=== PATIENT | male | born 1985 | race Two or more races ===

== ENCOUNTER 2025-04-23 16:14 | Inpatient (IN) | payer OTHER ==
[~2025-04-23] VITALS: Ht 177.8 cm; Wt 84.2 kg
[2025-04-23 17:27] LABS: PLATELET COUNT (AUTO) 515 K/uL (150-450); RED BLOOD CELL COUNT(AUTO) 6.25 MIL/uL (4.50-5.90); RED CELL DISTRIBUTION WIDTH 21.4 % (11.5-14.5); WHITE BLOOD COUNT (AUTO) 8.5 K/uL (4.5-11.0)
[2025-04-23 17:34] LABS: CALCIUM, TOTAL 8.5 mg/dL (8.8-10.5); CREATININE 1.41 mg/dL (0.60-1.30); GLOMERULAR FILTR. RATE CALC 56.0 mL/min (>60); GLUCOSE,RANDOM 83.0 mg/dL (70-110); SODIUM SERUM 139.0 mmol/L (136-145); UREA NITROGEN, BLOOD 18.0 mg/dL (7-18)
[2025-04-23 17:38] LABS: ASPARTATE AMINOTRANSFERASE 17 U/L (15-37); TOTAL PROTEIN, SERUM 7.8 g/dL (6.4-8.2)
[2025-04-23 17:43] LABS: LACTIC ACID 1.3 mmol/L (0.4-2.0)
[2025-04-23] MEDS ORDERED: OMEP-148 PO (18:02)
[2025-04-23] MEDS ORDERED: AMLO-258 PO (18:02)
[2025-04-23] MEDS ORDERED: TRAM50TA5 PO (18:02)
[2025-04-23] MEDS ORDERED: METO25 PO (18:02)
[2025-04-23 18:18] LABS: RBC MORPHOLOGY COMMENT ABNORMAL RBC MORPH
[2025-04-23] MEDS: ONDANSETRON HCL 4 MG/2 ML VIAL IVP ONE (18:40)
[2025-04-23] MEDS: SODIUM CHLORIDE 0.9% 1,000 ML IV ONE (19:51)
[2025-04-23] MEDS ORDERED: BISACODYL 10 MG RECTAL RECTAL SUPPOSITORY PR PRN (20:30)
[2025-04-23] MEDS ORDERED: ZOLPIDEM TARTRATE 5 MG TABLET PO PRN (20:30)
[2025-04-23] MEDS ORDERED: MAGNESIUM HYDROXIDE SUSPENSION 30 ML UDCUP PO PRN (20:30)
[2025-04-23] MEDS: DOCUSATE SODIUM 100 MG CAPSULE PO SCH (21:00)
[2025-04-23] MEDS: METOPROLOL TARTRATE 25 MG TABLET PO SCH (21:56)
[2025-04-23 21:57] VITALS: BP 127/93; PULSE 60; RESP 18; TEMP 97.5; O2SAT 98; O2SAT 99
[2025-04-23] MEDS: MORPHINE SULFATE 2 MG/ML SYRINGE IVP PRN (22:39)
[2025-04-24] MEDS: HEPARIN SODIUM,PORCINE 5,000 UNITS/ML VIAL SQ SCH (00:04)
[2025-04-24] MEDS: ONDANSETRON HCL 4 MG/2 ML VIAL IVP PRN (00:05)
[2025-04-24 03:20] VITALS: BP 135/88; PULSE 66; RESP 18; TEMP 98; O2SAT 99
[2025-04-24 06:40] LABS: PLATELET COUNT (AUTO) 444 K/uL (150-450); RED BLOOD CELL COUNT(AUTO) 5.69 MIL/uL (4.50-5.90); RED CELL DISTRIBUTION WIDTH 21.3 % (11.5-14.5); WHITE BLOOD COUNT (AUTO) 5.9 K/uL (4.5-11.0)
[2025-04-24 06:47] LABS: CALCIUM, TOTAL 8.2 mg/dL (8.8-10.5); CREATININE 1.30 mg/dL (0.60-1.30); GLOMERULAR FILTR. RATE CALC > 60 mL/min (>60); GLUCOSE,RANDOM 80 mg/dL (70-110); SODIUM SERUM 140 mmol/L (136-145); UREA NITROGEN, BLOOD 16 mg/dL (7-18)
[2025-04-24 07:10] LABS: RBC MORPHOLOGY COMMENT ABNORMAL RBC MORPH
[2025-04-24] MEDS: PANTOPRAZOLE SODIUM 40 MG DR TABLET PO SCH (08:34)
[2025-04-24] MEDS: OMEPRAZOLE 20 MG CAPSULE PO SCH (08:34)
[2025-04-24 09:10] VITALS: BP 106/78; PULSE 50; RESP 18; TEMP 97.7; O2SAT 97
[2025-04-24 19:24] VITALS: BP 128/88; PULSE 72; RESP 18; TEMP 97.9; O2SAT 98
[2025-04-24] MEDS: ACETAMINOPHEN 325 MG TABLET PO PRN (21:00)
[2025-04-25 04:24] VITALS: BP 113/79; PULSE 61; RESP 18; TEMP 97.9; O2SAT 97
[2025-04-25 07:08] LABS: PLATELET COUNT (AUTO) 469 K/uL (150-450); RED BLOOD CELL COUNT(AUTO) 5.95 MIL/uL (4.50-5.90); RED CELL DISTRIBUTION WIDTH 21.1 % (11.5-14.5); WHITE BLOOD COUNT (AUTO) 6.0 K/uL (4.5-11.0)
[2025-04-25 07:13] LABS: CALCIUM, TOTAL 8.3 mg/dL (8.8-10.5); CREATININE 1.49 mg/dL (0.60-1.30); GLOMERULAR FILTR. RATE CALC 53.0 mL/min (>60); GLUCOSE,RANDOM 80.0 mg/dL (70-110); SODIUM SERUM 138.0 mmol/L (136-145); UREA NITROGEN, BLOOD 14.0 mg/dL (7-18)
[2025-04-25 08:00] VITALS: BP 124/92; PULSE 56; RESP 18; O2SAT 99
[2025-04-25 08:16] LABS: RBC MORPHOLOGY COMMENT ABNORMAL RBC MORPH
[2025-04-25 08:33] VITALS: BP 124/92; PULSE 56; RESP 18; TEMP 98.3; O2SAT 97
[2025-04-25] MEDS: MORPHINE SULFATE 2 MG/ML SYRINGE IVP PRN (15:47)
[2025-04-25 16:00] VITALS: BP 118/85; PULSE 67; RESP 15; TEMP 97.8; O2SAT 99
[2025-04-25 21:38] VITALS: BP 116/88; PULSE 59; RESP 18; TEMP 97.9; O2SAT 96
[2025-04-26 06:03] VITALS: BP 115/89; PULSE 65; RESP 18; TEMP 97.9; O2SAT 98
[2025-04-26 08:05] LABS: PLATELET COUNT (AUTO) 471 K/uL (150-450); RED BLOOD CELL COUNT(AUTO) 6.50 MIL/uL (4.50-5.90); RED CELL DISTRIBUTION WIDTH 21.3 % (11.5-14.5); WHITE BLOOD COUNT (AUTO) 7.1 K/uL (4.5-11.0)
[2025-04-26 08:09] LABS: CALCIUM, TOTAL 8.7 mg/dL (8.8-10.5); CREATININE 1.68 mg/dL (0.60-1.30); GLOMERULAR FILTR. RATE CALC 46.0 mL/min (>60); GLUCOSE,RANDOM 124.0 mg/dL (70-110); SODIUM SERUM 138.0 mmol/L (136-145); UREA NITROGEN, BLOOD 10.0 mg/dL (7-18)
[2025-04-26 09:22] VITALS: BP 123/83; PULSE 65; RESP 18; TEMP 97.9; O2SAT 99
[2025-04-26 09:26] VITALS: BP 120/89; PULSE 76; RESP 18; TEMP 98.5; O2SAT 100
[2025-04-26 10:24] LABS: RBC MORPHOLOGY COMMENT ABNORMAL RBC MORPH
[2025-04-26 12:12] VITALS: BP 116/83; PULSE 62; RESP 18; O2SAT 96
[2025-04-26 18:28] VITALS: BP 123/87; PULSE 75; RESP 18; O2SAT 96
[2025-04-26 19:08] VITALS: BP 121/86; PULSE 71; RESP 18; TEMP 98.1; O2SAT 98
[2025-04-27 04:17] VITALS: BP 116/80; PULSE 64; RESP 18; TEMP 97.9; O2SAT 97
[2025-04-27 08:55] VITALS: BP 111/84; PULSE 71; RESP 20; TEMP 98.2; O2SAT 96
[2025-04-27 14:09] VITALS: BP 110/84; PULSE 68; RESP 18; O2SAT 96
[2025-04-27 15:32] VITALS: BP 110/78; PULSE 75; RESP 18; TEMP 97.7; O2SAT 96
[2025-04-27 20:00] VITALS: BP 104/78; PULSE 85; RESP 18; TEMP 98.4; O2SAT 96
[2025-04-28] VITALS (7 sets, daily range): BP systolic 109–127; BP diastolic 77–90; PULSE 71–89; RESP 18; TEMP 97.9–98.1; O2SAT 95–97
[2025-04-28] MEDS: SODIUM CHLORIDE 0.9% 1,000 ML IV ONE (12:21)
[2025-04-29 03:40] VITALS: BP 111/82; PULSE 77; RESP 18; TEMP 98.2; O2SAT 99
[2025-04-29 05:42] VITALS: BP 112/81; PULSE 75; RESP 18; TEMP 98.2; O2SAT 97
[2025-04-29 06:13] LABS: PLATELET COUNT (AUTO) 447 K/uL (150-450); RED BLOOD CELL COUNT(AUTO) 6.40 MIL/uL (4.50-5.90); RED CELL DISTRIBUTION WIDTH 21.5 % (11.5-14.5); WHITE BLOOD COUNT (AUTO) 6.5 K/uL (4.5-11.0)
[2025-04-29 06:58] LABS: RBC MORPHOLOGY COMMENT ABNORMAL RBC MORPH
[2025-04-29 07:05] LABS: CALCIUM, TOTAL 8.7 mg/dL (8.8-10.5); CREATININE 1.61 mg/dL (0.60-1.30); GLOMERULAR FILTR. RATE CALC 48.0 mL/min (>60); GLUCOSE,RANDOM 82.0 mg/dL (70-110); SODIUM SERUM 136.0 mmol/L (136-145); UREA NITROGEN, BLOOD 15.0 mg/dL (7-18)
[2025-04-29 08:57] VITALS: BP 113/80; PULSE 73; RESP 19; TEMP 97.8; O2SAT 100
[2025-04-29 12:13] VITALS: BP 111/79; PULSE 69; RESP 18; TEMP 97.8; O2SAT 100
[2025-04-29] MEDS: RINGERS SOLUTION,LACTATED 1,000 ML IV SCH (16:28)
[2025-04-29 18:13] VITALS: BP 112/83; RESP 18; O2SAT 100
[2025-04-29 21:04] VITALS: BP 110/79; PULSE 83; RESP 18; TEMP 98.4; O2SAT 98
[2025-04-29 21:09] LABS: APPEARANCE,URINE CLEAR (CLEAR); GLUCOSE, URINE (UA) NEGATIVE (NEGATIVE); LEUKOCYTE ESTERASE ,URINE TRACE (NEGATIVE); NITRATE,URINE NEGATIVE (NEGATIVE); OCCULT BLOOD,URINE NEGATIVE (NEGATIVE); SPECIFIC GRAVITIY, URINE 1.018 (1.003-1.030)
[2025-04-29 21:24] LABS: SQUAMOUS EPITHELIAL CELL,UR Rare /LPF (None Seen)
[2025-04-30 00:05] VITALS: BP 117/88; PULSE 69
[2025-04-30 04:37] VITALS: BP 112/76; PULSE 51; RESP 18; TEMP 97.3; O2SAT 97
[2025-04-30 06:13] VITALS: BP 109/83; PULSE 61; RESP 19; O2SAT 98
[2025-04-30 07:10] LABS: PLATELET COUNT (AUTO) 408 K/uL (150-450); RED BLOOD CELL COUNT(AUTO) 6.34 MIL/uL (4.50-5.90); RED CELL DISTRIBUTION WIDTH 21.2 % (11.5-14.5); WHITE BLOOD COUNT (AUTO) 6.4 K/uL (4.5-11.0)
[2025-04-30 07:28] LABS: CALCIUM, TOTAL 8.6 mg/dL (8.8-10.5); CREATININE 1.51 mg/dL (0.60-1.30); GLOMERULAR FILTR. RATE CALC 52.0 mL/min (>60); GLUCOSE,RANDOM 73.0 mg/dL (70-110); SODIUM SERUM 138.0 mmol/L (136-145); UREA NITROGEN, BLOOD 14.0 mg/dL (7-18)
[2025-04-30 07:45] LABS: RBC MORPHOLOGY COMMENT ABNORMAL RBC MORPH
[2025-04-30 08:00] VITALS: BP 111/82; PULSE 60; RESP 19; TEMP 97.5; O2SAT 100
[2025-04-30 20:39] VITALS: BP 115/73; PULSE 68; RESP 18; TEMP 98.1; O2SAT 100
[2025-05-01 04:30] VITALS: BP 104/75; PULSE 67; RESP 19; TEMP 97.7; O2SAT 95
[2025-05-01 06:30] LABS: CALCIUM, TOTAL 8.4 mg/dL (8.8-10.5); CREATININE 1.59 mg/dL (0.60-1.30); GLOMERULAR FILTR. RATE CALC 49.0 mL/min (>60); GLUCOSE,RANDOM 94.0 mg/dL (70-110); SODIUM SERUM 138.0 mmol/L (136-145); UREA NITROGEN, BLOOD 16.0 mg/dL (7-18)
[2025-05-01 09:23] VITALS: BP 113/82; PULSE 63; RESP 18; TEMP 98.1; O2SAT 98
[2025-05-01] MEDS ORDERED: ACET-2247 PO (12:58)
[2025-05-01] MEDS ORDERED: DIPH-1243 PO (12:59)
== END 2025-05-01 19:50 | DRG 394 ==
LOC: EMS 16:14 → EDH 19:29 → 6N 21:29 → 6S 04-30 15:08
PROVIDERS: ADMIT Hospitalist; ATTEND Hospitalist
DX: K94.19 Other complications of enterostomy (principal); K50.90 Crohn's disease, unspecified, without complications; I12.9 Hypertensive chronic kidney disease with stage 1 through stage 4 chronic kidney disease, or unspecified chronic kidney disease; K21.9 Gastro-esophageal reflux disease without esophagitis; G89.29 Other chronic pain; F17.210 Nicotine dependence, cigarettes, uncomplicated; K43.5 Parastomal hernia without obstruction or gangrene; N18.9 Chronic kidney disease, unspecified; Y83.3 Surgical operation with formation of external stoma as the cause of abnormal reaction of the patient, or of later complication, without mention of misadventure at the time of the procedure; Z85.038 Personal history of other malignant neoplasm of large intestine; Z90.49 Acquired absence of other specified parts of digestive tract; Z88.3 Allergy status to other anti-infective agents; Z88.5 Allergy status to narcotic agent; Z91.041 Radiographic dye allergy status; Y92.89 Other specified places as the place of occurrence of the external cause
CPT/HCPCS: 74176; 76705; 80048; 80076; 81001; 83605; 83690; 83735; 85025; 86850; 86900; 86901; 99285; J1171; J1200; J1644; J2270; J2405; J7030; J7120

== ENCOUNTER 2025-05-13 15:57 | Inpatient (IN) | payer OTHER ==
[~2025-05-13] VITALS: Ht 177.8 cm; Wt 87.5 kg
[~2025-05-13 15:57] MED LIST: ACET-2247 PO; DIPH-1243 PO; METO25 PO
[2025-05-13] MEDS: MORPHINE SULFATE 2 MG/ML SYRINGE IVP ONE (18:00)
[2025-05-13 18:02] LABS: PLATELET COUNT (AUTO) 586 K/uL (150-450); RED BLOOD CELL COUNT(AUTO) 5.44 MIL/uL (4.50-5.90); RED CELL DISTRIBUTION WIDTH 21.6 % (11.5-14.5); WHITE BLOOD COUNT (AUTO) 11.5 K/uL (4.5-11.0)
[2025-05-13] MEDS: ONDANSETRON HCL 4 MG/2 ML VIAL IVP PRN (18:06)
[2025-05-13 18:15] LABS: CALCIUM, TOTAL 9.1 mg/dL (8.8-10.5); CREATININE 1.17 mg/dL (0.60-1.30); GLOMERULAR FILTR. RATE CALC > 60 mL/min (>60); GLUCOSE,RANDOM 107 mg/dL (70-110); SODIUM SERUM 137 mmol/L (136-145); UREA NITROGEN, BLOOD 17 mg/dL (7-18)
[2025-05-13 18:17] LABS: ASPARTATE AMINOTRANSFERASE 14.0 U/L (15-37); TOTAL PROTEIN, SERUM 8.6 g/dL (6.4-8.2)
[2025-05-13 18:25] LABS: RBC MORPHOLOGY COMMENT ABNORMAL RBC MORPH
[2025-05-13] MEDS ORDERED: SODIUM CHLORIDE 0.9% 100 ML ONE (18:51)
[2025-05-13] MEDS ORDERED: IOHEXOL 350 MG/ML 100 ML VIAL ONE (18:51)
[2025-05-13] MEDS ORDERED: 0.9% SODIUM CHLORIDE 10 ML SYRINGE IVP ONE (18:51)
[2025-05-13] MEDS: MORPHINE SULFATE 4 MG/ML VIAL IVP PRN (20:19)
[2025-05-13] MEDS: SODIUM CHLORIDE 0.9% 1,000 ML IV ONE (20:21)
[2025-05-13] MEDS: DOCUSATE SODIUM 100 MG CAPSULE PO SCH (20:57)
[2025-05-13 23:41] VITALS: BP 128/90; PULSE 90; RESP 20; TEMP 97.7; O2SAT 96
[2025-05-14 05:00] VITALS: BP 116/82; PULSE 60; RESP 18; TEMP 97.7; O2SAT 97
[2025-05-14 08:00] VITALS: BP 118/85; PULSE 67; RESP 20; TEMP 97.7; O2SAT 96
[2025-05-14] MEDS: FAMOTIDINE 20 MG TABLET PO SCH (09:00)
[2025-05-14 12:16] LABS: PLATELET COUNT (AUTO)-OB 515 K/uL (150-450); RED BLOOD CELL COUNT(AUTO) 4.96 MIL/uL (4.50-5.90); RED CELL DISTRIBUTION WIDTH 21.3 % (11.5-14.5); WHITE BLOOD COUNT (AUTO) 8.0 K/uL (4.5-11.0)
[2025-05-14 16:00] VITALS: BP 123/89; PULSE 96; RESP 20; TEMP 98.2; O2SAT 98
[2025-05-14] MEDS ORDERED: FAMO20 PO (17:52)
[2025-05-14] MEDS ORDERED: DOCU-385 PO (17:52)
[2025-05-14 19:25] VITALS: BP 126/87; PULSE 87; RESP 20; TEMP 97.7; O2SAT 98
[2025-05-15] MEDS: ACETAMINOPHEN 325 MG TABLET PO PRN (01:32)
[2025-05-15 04:20] VITALS: BP 121/80; PULSE 75; RESP 19; TEMP 98.1; O2SAT 96
[2025-05-15 08:00] VITALS: BP 129/94; PULSE 76; RESP 17; TEMP 97.7; O2SAT 96
[2025-05-15 19:50] VITALS: BP 126/91; PULSE 89; RESP 18; TEMP 97.9; O2SAT 96
[2025-05-16 04:00] VITALS: BP 129/94; PULSE 79; RESP 18; TEMP 97.7; O2SAT 97
[2025-05-16] MEDS ORDERED: SODIUM CHLORIDE 0.9% 1,000 ML ONE (11:43)
[2025-05-16] MEDS: SODIUM CHLORIDE 0.9% 1,000 ML IV SCH (12:10)
[2025-05-16 21:07] VITALS: BP 124/85; PULSE 84; RESP 18; TEMP 98.1; O2SAT 96
[2025-05-16] MEDS: MORPHINE SULFATE 4 MG/ML VIAL IVP ONE (23:08)
[2025-05-17 08:56] VITALS: BP 128/93; PULSE 71; RESP 18; TEMP 97.9; O2SAT 96
[2025-05-17 19:36] VITALS: BP 125/84; PULSE 89; RESP 18; TEMP 97.7; O2SAT 97
[2025-05-18 03:32] VITALS: BP 122/87; PULSE 84; RESP 18; TEMP 98.2; O2SAT 97
[2025-05-18 06:53] LABS: PLATELET COUNT (AUTO)-OB 501 K/uL (150-450); RED BLOOD CELL COUNT(AUTO) 5.08 MIL/uL (4.50-5.90); RED CELL DISTRIBUTION WIDTH 21.4 % (11.5-14.5); WHITE BLOOD COUNT (AUTO) 9.5 K/uL (4.5-11.0)
[2025-05-18 07:07] LABS: RBC MORPHOLOGY COMMENT ABNORMAL RBC MORPH
[2025-05-18 07:17] LABS: CALCIUM, TOTAL 8.4 mg/dL (8.8-10.5); CREATININE 1.16 mg/dL (0.60-1.30); GLOMERULAR FILTR. RATE CALC > 60 mL/min (>60); GLUCOSE,RANDOM 111 mg/dL (70-110); SODIUM SERUM 137 mmol/L (136-145); UREA NITROGEN, BLOOD 7 mg/dL (7-18)
[2025-05-18 07:35] VITALS: BP 133/95; PULSE 80; RESP 18; TEMP 98.4; O2SAT 98
[2025-05-18 10:12] VITALS: BP 132/95; PULSE 85; RESP 18; O2SAT 98
[2025-05-18] MEDS: POTASSIUM CHLORIDE 20 MEQ ER TABLET PO ONE (10:17)
== END 2025-05-18 15:30 | DRG 394 ==
LOC: EMS 15:57 → EDH 17:42 → 4S 23:34
PROVIDERS: ADMIT Internal Medicine; ATTEND Internal Medicine
DX: K43.5 Parastomal hernia without obstruction or gangrene (principal); K50.90 Crohn's disease, unspecified, without complications; K43.9 Ventral hernia without obstruction or gangrene; B19.20 Unspecified viral hepatitis C without hepatic coma; D50.9 Iron deficiency anemia, unspecified; I10 Essential (primary) hypertension; K59.00 Constipation, unspecified; F17.210 Nicotine dependence, cigarettes, uncomplicated; Z93.3 Colostomy status; Z93.2 Ileostomy status; Z91.041 Radiographic dye allergy status; Z90.49 Acquired absence of other specified parts of digestive tract; Z88.5 Allergy status to narcotic agent; Z88.3 Allergy status to other anti-infective agents; Z85.038 Personal history of other malignant neoplasm of large intestine
CPT/HCPCS: 74177; 80048; 80076; 83690; 85025; 87081; 93005; 96361; 96374; 96375; 96376; 99285; G0378; J1200; J2270; J2405; J7030; J7050; 36415-L1; 36415-TC

== ENCOUNTER 2025-06-17 19:43 | Inpatient (IN) | payer OTHER ==
[~2025-06-17] VITALS: Ht 177.8 cm; Wt 84.5 kg
[~2025-06-17 19:43] MED LIST changes: -DIPH-1243 PO; +DOCU-385 PO; +FAMO20 PO; -METO25 PO
[2025-06-17] MEDS ORDERED: MORPHINE SULFATE 2 MG/ML SYRINGE IVP ONE (21:00)
[2025-06-17 21:26] LABS: PLATELET COUNT (AUTO) 389 K/uL (150-450); RED BLOOD CELL COUNT(AUTO) 5.62 MIL/uL (4.50-5.90); RED CELL DISTRIBUTION WIDTH 19.5 % (11.5-14.5); WHITE BLOOD COUNT (AUTO) 7.4 K/uL (4.5-11.0)
[2025-06-17 21:26] LABS: APPEARANCE,URINE CLEAR (CLEAR); GLUCOSE, URINE (UA) NEGATIVE (NEGATIVE); LEUKOCYTE ESTERASE ,URINE NEGATIVE (NEGATIVE); NITRATE,URINE NEGATIVE (NEGATIVE); OCCULT BLOOD,URINE TRACE (NEGATIVE); SPECIFIC GRAVITIY, URINE 1.025 (1.003-1.030)
[2025-06-17 21:27] LABS: CALCIUM, TOTAL 8.8 mg/dL (8.8-10.5); CREATININE 1.34 mg/dL (0.60-1.30); GLOMERULAR FILTR. RATE CALC 59.0 mL/min (>60); GLUCOSE,RANDOM 103.0 mg/dL (70-110); SODIUM SERUM 137.0 mmol/L (136-145); UREA NITROGEN, BLOOD 30.0 mg/dL (7-18)
[2025-06-17 21:35] LABS: ASPARTATE AMINOTRANSFERASE 17.0 U/L (15-37); TOTAL PROTEIN, SERUM 7.9 g/dL (6.4-8.2)
[2025-06-17 22:18] LABS: RBC MORPHOLOGY COMMENT ABNORMAL RBC MORPH
[2025-06-17] MEDS: ONDANSETRON HCL 4 MG/2 ML VIAL IVP ONE (22:29)
[2025-06-17] MEDS: MORPHINE SULFATE 4 MG/ML SYRINGE IVP ONE (22:30)
[2025-06-17] MEDS ORDERED: IOHEXOL 300 MG/ML 100 ML VIAL ONE (22:45)
[2025-06-17] MEDS ORDERED: SODIUM CHLORIDE 0.9% 100 ML ONE (22:46)
[2025-06-17] MEDS: SODIUM CHLORIDE 0.9% 1,000 ML IV ONE (22:58)
[2025-06-18] MEDS: MORPHINE SULFATE 4 MG/ML SYRINGE IVP ONE ×3 (03:18→23:46)
[2025-06-18] MEDS: ONDANSETRON HCL 4 MG/2 ML VIAL IVP ONE ×2 (06:28→10:15)
[2025-06-18 10:10] VITALS: BP 118/71; PULSE 86; RESP 19; TEMP 97.7; O2SAT 99
[2025-06-18] MEDS ORDERED: BISACODYL 10 MG RECTAL RECTAL SUPPOSITORY PR PRN (10:45)
[2025-06-18] MEDS ORDERED: MAGNESIUM HYDROXIDE SUSPENSION 30 ML UDCUP PO PRN (10:45)
[2025-06-18] MEDS: PIPERACILLIN/TAZO 3.375 GM/D5W 50 ML IV SCH (11:22)
[2025-06-18] MEDS: SODIUM CHLORIDE 0.9% 1,000 ML IV ONE (11:22)
[2025-06-18 11:55] VITALS: BP 136/81; PULSE 105; RESP 19; TEMP 97.3; O2SAT 99
[2025-06-18] MEDS: *CLINICAL-LEVOFLOXACIN IVPB DOSING CLINICAL ONE (12:34)
[2025-06-18] MEDS: LEVOFLOXACIN 750 MG/D5% WATER 150 ML IV SCH (13:58)
[2025-06-18] MEDS ORDERED: SODIUM CHLORIDE 0.9% 250 ML IV ONE (13:59)
[2025-06-18] MEDS: ACETAMINOPHEN 325 MG TABLET PO PRN (16:54)
[2025-06-18] MEDS: HEPARIN SODIUM,PORCINE 5,000 UNITS/ML VIAL SQ SCH (16:55)
[2025-06-18] MEDS: ONDANSETRON HCL 4 MG/2 ML VIAL IVP PRN (16:55)
[2025-06-18] MEDS: DOCUSATE SODIUM 100 MG CAPSULE PO SCH (20:15)
[2025-06-18 20:18] VITALS: BP 111/74; PULSE 66; RESP 20; TEMP 97.2; O2SAT 98
[2025-06-18] MEDS: ZOLPIDEM TARTRATE 5 MG TABLET PO PRN (23:09)
[2025-06-19 06:34] LABS: PLATELET COUNT (AUTO) 360 K/uL (150-450); RED BLOOD CELL COUNT(AUTO) 5.64 MIL/uL (4.50-5.90); RED CELL DISTRIBUTION WIDTH 18.8 % (11.5-14.5); WHITE BLOOD COUNT (AUTO) 6.6 K/uL (4.5-11.0)
[2025-06-19 06:40] LABS: RBC MORPHOLOGY COMMENT ABNORMAL RBC MORPH
[2025-06-19 06:50] LABS: CALCIUM, TOTAL 8.2 mg/dL (8.8-10.5); CREATININE 1.08 mg/dL (0.60-1.30); GLOMERULAR FILTR. RATE CALC > 60 mL/min (>60); GLUCOSE,RANDOM 107 mg/dL (70-110); SODIUM SERUM 141 mmol/L (136-145); UREA NITROGEN, BLOOD 20 mg/dL (7-18)
[2025-06-19 07:52] LABS: C.DIFF GDH ANTIGEN, Stool Negative (Negative); C.DIFF TOXINS A&B, Stool Negative (Negative)
[2025-06-19] MEDS: PANTOPRAZOLE SODIUM 40 MG DR TABLET PO SCH (08:33)
[2025-06-19 08:46] VITALS: BP 121/75; PULSE 68; RESP 18; TEMP 97.7; O2SAT 98
[2025-06-19] MEDS: OxyCODONE HCL 5 MG IR TABLET PO PRN (11:16)
[2025-06-19] MEDS ORDERED: SODIUM CHLORIDE 0.9% 500 ML IV ONE (13:08)
[2025-06-19 17:19] LABS: C.DIFF GDH ANTIGEN, Stool Negative (Negative); C.DIFF TOXINS A&B, Stool Negative (Negative)
[2025-06-19 17:50] VITALS: BP 118/70; PULSE 71; RESP 16; TEMP 98; O2SAT 97
[2025-06-19 20:25] VITALS: BP 135/91; PULSE 84; RESP 18; TEMP 97.3; O2SAT 94
[2025-06-20] MEDS: MORPHINE SULFATE 4 MG/ML SYRINGE IVP PRN (04:58)
[2025-06-20 05:01] VITALS: BP 126/86; PULSE 71; RESP 18; TEMP 98.1; O2SAT 97
[2025-06-20 07:38] LABS: CALCIUM, TOTAL 8.7 mg/dL (8.8-10.5); CREATININE 1.22 mg/dL (0.60-1.30); GLOMERULAR FILTR. RATE CALC > 60 mL/min (>60); GLUCOSE,RANDOM 144 mg/dL (70-110); SODIUM SERUM 138 mmol/L (136-145); UREA NITROGEN, BLOOD 21 mg/dL (7-18)
[2025-06-20 08:16] VITALS: BP 123/81; PULSE 69; RESP 19; TEMP 97.9; O2SAT 96
[2025-06-20 08:46] LABS: PLATELET COUNT (AUTO) 376 K/uL (150-450); RED BLOOD CELL COUNT(AUTO) 5.59 MIL/uL (4.50-5.90); RED CELL DISTRIBUTION WIDTH 19.0 % (11.5-14.5); WHITE BLOOD COUNT (AUTO) 9.0 K/uL (4.5-11.0)
[2025-06-20 09:11] LABS: RBC MORPHOLOGY COMMENT ABNORMAL RBC MORPH
[2025-06-20] MEDS ORDERED: SODIUM CHLORIDE 0.9% 250 ML IV ONE (12:49)
[2025-06-20 15:24] VITALS: BP 108/73; PULSE 104; RESP 18; TEMP 98.1; O2SAT 96
[2025-06-20 15:41] VITALS: BP 124/81; PULSE 87; RESP 19; TEMP 98.1; O2SAT 99
[2025-06-20 20:00] VITALS: BP 130/87; PULSE 60; RESP 18; TEMP 97.9; O2SAT 98
[2025-06-21 04:41] VITALS: BP 135/92; PULSE 74; RESP 18; TEMP 97.7; O2SAT 97
[2025-06-21 07:13] VITALS: BP 129/89; PULSE 84; RESP 18; TEMP 97.5; O2SAT 95
[2025-06-21 08:32] LABS: PLATELET COUNT (AUTO) 370 K/uL (150-450); RED BLOOD CELL COUNT(AUTO) 5.64 MIL/uL (4.50-5.90); RED CELL DISTRIBUTION WIDTH 19.1 % (11.5-14.5); WHITE BLOOD COUNT (AUTO) 10.4 K/uL (4.5-11.0)
[2025-06-21 08:43] LABS: CALCIUM, TOTAL 8.5 mg/dL (8.8-10.5); CREATININE 1.16 mg/dL (0.60-1.30); GLOMERULAR FILTR. RATE CALC > 60 mL/min (>60); GLUCOSE,RANDOM 110 mg/dL (70-110); SODIUM SERUM 138 mmol/L (136-145); UREA NITROGEN, BLOOD 23 mg/dL (7-18)
[2025-06-21 20:00] VITALS: BP 132/87; PULSE 68; RESP 18; TEMP 97.5; O2SAT 96
[2025-06-22] MEDS: OxyCODONE HCL 5 MG IR TABLET PO PRN (04:04)
[2025-06-22 05:05] VITALS: BP 151/89; PULSE 58; RESP 18; TEMP 97.3; O2SAT 98
[2025-06-22 08:18] VITALS: BP 129/87; PULSE 89; RESP 18; TEMP 97.8; O2SAT 98
[2025-06-22] MEDS ORDERED: LEVO-72 PO (15:53)
[2025-06-22] MEDS ORDERED: PRED-554 PO (15:54)
== END 2025-06-22 20:13 | DRG 386 ==
LOC: EMS 19:43 → EDH 06-18 06:35 → 6S 06-18 09:05
PROVIDERS: ADMIT Internal Medicine; ATTEND Internal Medicine
DX: K50.10 Crohn's disease of large intestine without complications (principal); N17.9 Acute kidney failure, unspecified; I10 Essential (primary) hypertension; K43.5 Parastomal hernia without obstruction or gangrene; K21.9 Gastro-esophageal reflux disease without esophagitis; Z88.5 Allergy status to narcotic agent; Z88.3 Allergy status to other anti-infective agents; Z85.038 Personal history of other malignant neoplasm of large intestine; Z93.2 Ileostomy status; Z87.891 Personal history of nicotine dependence; Z90.49 Acquired absence of other specified parts of digestive tract; Z91.041 Radiographic dye allergy status
CPT/HCPCS: 74177; 80048; 80076; 81001; 83690; 85025; 87045; 87324; 87449; 89055; 99285; J1200; J1644; J1956; J2270; J2405; J2543; J7030; J7040; J7050; Q9967

== ENCOUNTER 2025-07-11 16:14 | Inpatient (IN) | payer OTHER ==
[~2025-07-11] VITALS: Ht 177.8 cm; Wt 90.0 kg
[~2025-07-11 16:14] MED LIST changes: -DOCU-385 PO; -FAMO20 PO; +LEVO-72 PO; +PRED-554 PO
[2025-07-11] MEDS ORDERED: IOHEXOL 350 MG/ML 100 ML VIAL ONE (16:57)
[2025-07-11 17:18] LABS: PLATELET COUNT (AUTO) 401 K/uL (150-450); RED BLOOD CELL COUNT(AUTO) 4.93 MIL/uL (4.50-5.90); RED CELL DISTRIBUTION WIDTH 18.8 % (11.5-14.5); WHITE BLOOD COUNT (AUTO) 9.4 K/uL (4.5-11.0)
[2025-07-11 17:26] LABS: CALCIUM, TOTAL 8.6 mg/dL (8.8-10.5); CREATININE 1.59 mg/dL (0.60-1.30); GLOMERULAR FILTR. RATE CALC 49.0 mL/min (>60); GLUCOSE,RANDOM 130.0 mg/dL (70-110); SODIUM SERUM 141.0 mmol/L (136-145); UREA NITROGEN, BLOOD 20.0 mg/dL (7-18)
[2025-07-11 17:32] LABS: ASPARTATE AMINOTRANSFERASE 15.0 U/L (15-37); TOTAL PROTEIN, SERUM 7.9 g/dL (6.4-8.2)
[2025-07-11 17:33] LABS: RBC MORPHOLOGY COMMENT ABNORMAL RBC MORPH
[2025-07-11] MEDS: MORPHINE SULFATE 2 MG/ML SYRINGE IVP ONE (17:35)
[2025-07-11] MEDS: SODIUM CHLORIDE 0.9% 1,000 ML IV ONE (17:45)
[2025-07-11] MEDS ORDERED: ONDANSETRON HCL 4 MG/2 ML VIAL IVP PRN (23:15)
[2025-07-11] MEDS: RINGERS SOLUTION,LACTATED 1,000 ML IV SCH (23:15)
[2025-07-11] MEDS ORDERED: ACETAMINOPHEN 325 MG TABLET PO PRN (23:15)
[2025-07-11] MEDS: *CLINICAL-LEVOFLOXACIN IVPB DOSING CLINICAL ONE (23:20)
[2025-07-11] MEDS: MORPHINE SULFATE 4 MG/ML SYRINGE IVP ONE (23:33)
[2025-07-12 01:35] VITALS: BP 132/83; PULSE 92; RESP 18; TEMP 98.2; O2SAT 97
[2025-07-12] MEDS: CLINDAMYCIN 300 MG/D5% WATER 50 ML IV SCH (01:49)
[2025-07-12] MEDS: LEVOFLOXACIN 500 MG/D5% WATER 100 ML IV SCH (01:49)
[2025-07-12] MEDS: MORPHINE SULFATE 4 MG/ML SYRINGE IVP PRN (04:25)
[2025-07-12 05:14] VITALS: BP 134/93; PULSE 100; RESP 19; TEMP 98.2; O2SAT 97
[2025-07-12 08:00] VITALS: BP 133/95; PULSE 92; RESP 18; TEMP 98.8; O2SAT 95
[2025-07-12] MEDS ORDERED: SODIUM CHLORIDE 0.9% 500 ML IV ONE (08:42)
[2025-07-12 09:35] LABS: PLATELET COUNT (AUTO) 384 K/uL (150-450); RED BLOOD CELL COUNT(AUTO) 4.76 MIL/uL (4.50-5.90); RED CELL DISTRIBUTION WIDTH 19.0 % (11.5-14.5); WHITE BLOOD COUNT (AUTO) 11.4 K/uL (4.5-11.0)
[2025-07-12 09:49] LABS: CALCIUM, TOTAL 8.3 mg/dL (8.8-10.5); CREATININE 1.21 mg/dL (0.60-1.30); GLOMERULAR FILTR. RATE CALC > 60 mL/min (>60); GLUCOSE,RANDOM 83 mg/dL (70-110); SODIUM SERUM 139 mmol/L (136-145); UREA NITROGEN, BLOOD 13 mg/dL (7-18)
[2025-07-12 10:23] LABS: RBC MORPHOLOGY COMMENT ABNORMAL RBC MORPH
[2025-07-12 16:00] VITALS: BP 130/95; PULSE 77; RESP 18; TEMP 97.9; O2SAT 96
[2025-07-12 19:46] VITALS: BP_SYST 130; BP_SYST 190; BP_DIAS 94; PULSE 80; RESP 19; TEMP 98.1; O2SAT 96
[2025-07-12] MEDS: LEVOFLOXACIN 750 MG/D5% WATER 150 ML IV SCH (23:15)
[2025-07-13 00:30] VITALS: BP 135/95; PULSE 88; RESP 18; O2SAT 96
[2025-07-13 04:49] VITALS: BP 129/91; PULSE 85; RESP 19; TEMP 98.1; O2SAT 95
[2025-07-13 08:47] VITALS: BP 138/91; PULSE 66; RESP 18; TEMP 97.8; O2SAT 97
[2025-07-13 13:32] VITALS: BP 129/91; PULSE 80; RESP 18; O2SAT 100
[2025-07-13 17:35] VITALS: BP 129/95; PULSE 77; RESP 18; O2SAT 98
[2025-07-13 19:29] VITALS: BP 132/91; PULSE 69; RESP 18; TEMP 97.7; O2SAT 96
[2025-07-14 04:26] VITALS: BP 118/91; PULSE 78; RESP 18; TEMP 97.9; O2SAT 96
[2025-07-14 08:00] VITALS: BP 124/88; PULSE 81; RESP 20; TEMP 98.6; O2SAT 98
[2025-07-14 20:15] VITALS: BP 134/94; PULSE 91; RESP 18; TEMP 99; O2SAT 96
[2025-07-15 01:26] VITALS: BP 123/84; PULSE 89; RESP 18; TEMP 97.7; O2SAT 96
[2025-07-15 04:02] VITALS: BP 123/85; PULSE 89; RESP 18; TEMP 98.1; O2SAT 94
[2025-07-15] MEDS ORDERED: ESCI-8 PO (05:54)
[2025-07-15] MEDS ORDERED: AMLO-258 PO (05:54)
[2025-07-15] MEDS ORDERED: DOCU-385 PO (05:54)
[2025-07-15] MEDS ORDERED: CHOL25TA4 PO (05:54)
[2025-07-15] MEDS ORDERED: ARIP10TA38 PO (05:54)
[2025-07-15 05:58] VITALS: BP 115/81; PULSE 84; RESP 18; TEMP 97.9; O2SAT 95
[2025-07-15] MEDS ORDERED: SIME80TA82 PO (06:02)
[2025-07-15] MEDS ORDERED: TAMS0.4C94 PO (06:02)
[2025-07-15] MEDS ORDERED: MULT-660 PO (06:02)
[2025-07-15] MEDS ORDERED: TIZA-211 PO (06:02)
[2025-07-15] MEDS ORDERED: OMEP-148 PO (06:02)
[2025-07-15] MEDS ORDERED: METO25 PO (06:02)
[2025-07-15] MEDS ORDERED: MELA5TAB40 PO (06:02)
[2025-07-15] MEDS ORDERED: GABA-1181 PO (06:02)
[2025-07-15] MEDS ORDERED: OXYC5 PO (06:02)
[2025-07-15 07:58] VITALS: BP 120/82; PULSE 78; RESP 18; TEMP 98.1; O2SAT 98
[2025-07-15 20:05] VITALS: BP 115/80; PULSE 92; RESP 16; TEMP 98.2; O2SAT 95
[2025-07-15 23:29] LABS: PLATELET COUNT (AUTO)-OB 513 K/uL (150-450); RED BLOOD CELL COUNT(AUTO) 5.04 MIL/uL (4.50-5.90); RED CELL DISTRIBUTION WIDTH 19.2 % (11.5-14.5); WHITE BLOOD COUNT (AUTO) 9.2 K/uL (4.5-11.0)
[2025-07-15 23:40] LABS: CALCIUM, TOTAL 8.4 mg/dL (8.8-10.5); CREATININE 1.30 mg/dL (0.60-1.30); GLOMERULAR FILTR. RATE CALC > 60 mL/min (>60); GLUCOSE,RANDOM 113 mg/dL (70-110); SODIUM SERUM 137 mmol/L (136-145); UREA NITROGEN, BLOOD 13 mg/dL (7-18)
[2025-07-15 23:45] LABS: ASPARTATE AMINOTRANSFERASE 18 U/L (15-37); TOTAL PROTEIN, SERUM 7.3 g/dL (6.4-8.2)
[2025-07-16 01:58] LABS: RBC MORPHOLOGY COMMENT ABNORMAL RBC MORPH
[2025-07-16 04:00] VITALS: BP 110/86; PULSE 86; RESP 18; TEMP 97.7; O2SAT 96
[2025-07-16 08:47] VITALS: BP 120/77; PULSE 79; RESP 18; TEMP 97.6; O2SAT 97
[2025-07-16] MEDS ORDERED: GuaiFENesin/D-METHORPHAN/PHENYLEPH 5 ML LIQUID ORAL.SYG PO PRN (20:15)
[2025-07-16 20:19] VITALS: BP 119/83; PULSE 89; RESP 18; TEMP 98.1; O2SAT 96
[2025-07-16] MEDS: GuaiFENesin [SUGAR-FREE] 200 MG/10 ML SOLUTION UDCUP PO PRN (21:02)
[2025-07-17 04:20] VITALS: BP 109/78; PULSE 87; RESP 18; TEMP 97.7
[2025-07-17 07:06] LABS: GLUCOSE,POINT OF CARE 115 MG/DL (70-110)
[2025-07-17 08:38] VITALS: BP 112/80; PULSE 73; RESP 20; TEMP 97.9; O2SAT 94
[2025-07-17] MEDS ORDERED: GUAI100L96 PO (14:09)
[2025-07-17] MEDS ORDERED: CLIN300C58 PO (14:09)
[2025-07-17] MEDS ORDERED: LEVO750T68 PO (14:10)
== END 2025-07-17 17:31 | DRG 393 ==
LOC: EMS 16:14 → EDH 23:03 → 6S 07-12 01:08 → 4S 07-14 05:14
PROVIDERS: ADMIT Internal Medicine; ATTEND Internal Medicine
DX: K94.19 Other complications of enterostomy (principal); J18.9 Pneumonia, unspecified organism; D84.9 Immunodeficiency, unspecified; N17.9 Acute kidney failure, unspecified; D64.9 Anemia, unspecified; I10 Essential (primary) hypertension; B19.20 Unspecified viral hepatitis C without hepatic coma; K43.5 Parastomal hernia without obstruction or gangrene; K43.2 Incisional hernia without obstruction or gangrene; L98.9 Disorder of the skin and subcutaneous tissue, unspecified; Y83.8 Other surgical procedures as the cause of abnormal reaction of the patient, or of later complication, without mention of misadventure at the time of the procedure; Z85.038 Personal history of other malignant neoplasm of large intestine; Y92.89 Other specified places as the place of occurrence of the external cause; Z88.5 Allergy status to narcotic agent; Z91.041 Radiographic dye allergy status; Z88.3 Allergy status to other anti-infective agents; Z79.52 Long term (current) use of systemic steroids
CPT/HCPCS: 74177; 80048; 80053; 80076; 82962; 83690; 83735; 85025; 96361; 96374; 96375; 99285; G0378; J1200; J1956; J2270; J3490; J7030; J7040; J7120; 36415-L1; 36415-TC